=== PATIENT | male | born 1965 | race Two or more races ===

== ENCOUNTER 2021-03-26 11:25 | Outpatient (CLI) | payer OTHER ==
[2021-03-26 12:01] LABS: BASOPHILS % (AUTO) 1 % (0-1); EOSINOPHILS % (AUTO) 2 % (1-7); LYMPHOCYTES % (AUTO) 39 % (22-44); MEAN CORPUSCULAR HEMOGLOBIN 29.4 pg (27.5-34.5); MEAN CORPUSCULAR HGB CONC 33.5 g/dL (33.2-36.2); MEAN PLATELET VOLUME 7.4 fL (7.4-10.4); MONOCYTES % (AUTO) 5 % (2-9); NEUTROPHILS % (AUTO) 53 % (42-75); PLATELET COUNT 280 x10^3/uL (130-400); RED BLOOD COUNT 4.99 x10^6/uL (4.38-5.82); RED CELL DISTRIBUTION WIDTH 14.1 % (9.4-14.8)
[2021-03-26 12:05] LABS: ALANINE AMINOTRANSFERASE 45 U/L (12-78); ALBUMIN 3.9 g/dL (3.4-5.0); ANION GAP 5 mmol/L (5-15); CALCIUM 9.1 mg/dL (8.5-10.1); CHLORIDE 104 mmol/L (98-107); CHOLESTEROL, TOTAL 179 mg/dL (140-239); CREATININE 0.85 mg/dL (0.7-1.3)
[2021-03-26 12:16] LABS: ALKALINE PHOSPHATASE 75 U/L (45-117); BILIRUBIN,TOTAL 0.4 mg/dL (0.2-1.0); CHOL/HDL RATIO 3.3; HDL CHOL % 30 % (26-37); HDL CHOLESTEROL (DIRECT) 54 mg/dL (40-60); LDL CHOLESTEROL,CALCULATED 104 mg/dL (54-169); LDL/HDL RATIO 1.9 (0.5-3.0); T4 (THYROXINE) 9.4 mcg/dL (4.5-12.1); TOTAL PROTEIN 7.8 g/dL (6.4-8.2); TRIGLYCERIDES 104 mg/dL (50-200); VLDL CHOLESTEROL 21 mg/dL (0-25)
[2021-03-27 11:16] LABS: OCCULT BLOOD POSITIVE (NEGATIVE)
== END 2021-03-26 23:59 | disposition home or self-care (01) ==
LOC: LAB 11:25
PROVIDERS: ATTEND Family Medicine
DX: Z00.00 Encounter for general adult medical examination without abnormal findings (principal); R25.2 Cramp and spasm
CPT/HCPCS: 36415; 80053; 80061; 82272; 84153; 84436; 84443; 85025; G0103